=== PATIENT | male | born 1975 | race Hispanic/Latino ===

== ENCOUNTER 2016-03-25 13:45 | Emergency (ER) | payer SELFPAY ==
--- NOTE | 2016-03-25 14:26 | Emergency Department Report ---
Chief Complaint: Neuro Symptoms/Deficit Stated Complaint: NEUROTMESIS Time Seen by Provider: 03/25/16 14:20 - HPI History of Present Illness: 40 y/o male complain of nurotmesis flare .right eye pain x 2 days .denies any blurry vision .denies any headache . - ROS Review of Systems: per HPI - Exam Vital Signs: Vital Signs 03/25/16 14:02 Temperature 98.4 F Pulse Rate 123 H Respiratory 18 Rate Blood Pressure 202/138 O2 Sat by Pulse 100 Oximetry Physical Exam: GENERAL: The patient is well-developed and well-nourished. Patient is in NAD. HENT: Normocephalic. Atraumatic. Patient has moist mucous membranes. Throat: No erythema, swelling or exudates. EYES: Extraocular motions are intact, PERRL NECK: Supple. No meningitic signs are noted. There is no adenopathy noted. CHEST/LUNGS: Clear to auscultation bilaterally. No wheezing, rales or rhonchi noted. There is no respiratory distress noted. HEART/CARDIOVASCULAR: Regular rate and rhythm. Normal S1 S2. No murmurs, rubs , clicks, or gallops. ABDOMEN: Abdomen is soft, nontender.. Bowel sounds normoactive. There is no abdominal distention. Negative rebound tenderness. Negative Rovsing. : Deferred. SKIN: There is no rash. There is no edema. There is no diaphoresis. NEURO: The patient is A&Ox3. The patient has no focal neurologic deficits. MUSCULOSKELETAL: There is no tenderness or deformity. There is no limitation range of motion. PSYCH: Pt has appropriate mood and affect. MSE screening note: Focused history and physical exam performed. Due to findings the following was ordered: ED Disposition for MSE Condition: Stable
[2016-03-25 14:58] LABS: Basophils % (Auto) 0.6 % (0.0-1.8); Eosinophils % (Auto) 2.5 % (0.0-4.3); Hematocrit 38.8 % (35.5-45.6); Hemoglobin 12.8 gm/dl (11.8-15.2); Mean Corpuscular HGB Conc 33 % (32-34); Mean Corpuscular Hemoglobin 29 pg (28-32); Mean Corpuscular Volume 89 fl (84-94); Platelet Count 396 K/mm3 (140-440); Red Blood Count 4.36 M/mm3 (3.65-5.03); Red Cell Distribution Width 15.4 % (13.2-15.2); White Blood Count 8.9 K/mm3 (4.5-11.0)
[2016-03-25 15:18] LABS: Alanine Aminotransferase 20 units/L (7-56); Albumin 4.5 g/dL (3.9-5); Albumin/Globulin Ratio 1.5 %; Alkaline Phosphatase 77 units/L (35-129); Anion Gap 20 mmol/L; BUN/Creatinine Ratio 13.75; Bilirubin,Total 0.3 mg/dL (0.1-1.2); Blood Urea Nitrogen 11 mg/dL (9-20); Calcium 9.3 mg/dL (8.4-10.2); Carbon Dioxide 26 mmol/L (22-30); Chloride 102.5 mmol/L (98-107); Glucose 93 mg/dL (75-100); Potassium 3.6 mmol/L (3.6-5.0); Sodium 145 mmol/L (137-145); Total Protein 7.6 g/dL (6.3-8.2)
[2016-03-25 15:36] LABS: Creatine Kinase MB 1.3 ng/mL (0.0-4.0)
[2016-03-25 15:37] LABS: Creatine Kinase 103 units/L (55-170)
[2016-03-25] MEDS ORDERED: ZOFRAN IV ONE (16:47)
[2016-03-25] MEDS ORDERED: SUBLIMAZE IV ONE (16:47)
[2016-03-25] MEDS ORDERED: NORMODYNE IV ONE (16:48)
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
--- NOTE | 2016-03-25 17:55 | Cat Scan Report ---
FINAL REPORT PROCEDURE: CT HEAD/BRAIN WO CON TECHNIQUE: Computerized tomography of the head was performed without contrast material. HISTORY: hypertension, head pain, COMPARISON: No prior studies are available for comparison. FINDINGS: Mild mucosal thickening is seen in the right sphenoid sinus and maxillary sinuses. Mastoid air cells are clear no calvarial fracture is seen. Cerebral ventricles are normal in size. No acute intracranial hemorrhage or mass effect is seen. No CVA is seen. IMPRESSION: No intracranial abnormality is seen. Mild changes of chronic sinusitis are seen.
[2016-03-25 18:22] VITALS: BP 200/144
[2016-03-25] MEDS ORDERED: APRESOLINE IV ONE (18:28)
== END 2016-03-25 18:43 | disposition home or self-care (01) ==
LOC: ED 13:45
DX: R51 Headache (principal); I10 Essential (primary) hypertension; I63.9 Cerebral infarction, unspecified; E78.00 Pure hypercholesterolemia, unspecified; F17.200 Nicotine dependence, unspecified, uncomplicated; I25.10 Atherosclerotic heart disease of native coronary artery without angina pectoris; Z98.890 Other specified postprocedural states
CPT/HCPCS: 36415; 70450; 80053; 82550; 82553; 84484; 85025; 93005; 93010; 96374; 96375; 99284; J2405; J3010; J0360

== ENCOUNTER 2016-03-26 13:53 | Emergency (ER) | payer SELFPAY ==
[2016-03-26 14:14] VITALS: BP 161/116
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
[2016-03-26 15:46] LABS: BUN/Creatinine Ratio 15.71; Blood Urea Nitrogen 11 mg/dL (9-20); Calcium 9.5 mg/dL (8.4-10.2); Carbon Dioxide 26 mmol/L (22-30); Creatine Kinase 112 units/L (55-170); Creatine Kinase MB 1.5 ng/mL (0.0-4.0); Glucose 96 mg/dL (75-100); Potassium 3.8 mmol/L (3.6-5.0); Sodium 141 mmol/L (137-145)
[2016-03-26 15:59] LABS: Anion Gap 21 mmol/L
--- NOTE | 2016-03-27 12:02 | ED Elopement Review ---
ED Pt Elopement review - Results review Lab results: Laboratory Tests 03/26/16 15:00 Sodium 141 Potassium 3.8 Chloride 98.0 Carbon Dioxide 26 Anion Gap 21 BUN 11 Creatinine 0.7 L Estimated GFR > 60 BUN/Creatinine Ratio 15.71 Glucose 96 Calcium 9.5 Total Creatine Kinase 112 CK-MB (CK-2) 1.5 CK-MB (CK-2) Rel Index 1.3 Troponin T < 0.010 - Call Back decision Pt Call Back Decision: Pt to F/U with PMD
== END 2016-03-26 19:16 | disposition left against medical advice (07) ==
LOC: ED 13:53
DX: R29.818 Other symptoms and signs involving the nervous system (principal); R51 Headache; R07.9 Chest pain, unspecified; R03.0 Elevated blood-pressure reading, without diagnosis of hypertension; Z53.21 Procedure and treatment not carried out due to patient leaving prior to being seen by health care provider
CPT/HCPCS: 36415; 80048; 82550; 82553; 84484; 93005; 93010